=== PATIENT | female | born 1965 | race Caucasian/White ===

== ENCOUNTER 2016-11-18 09:55 | Emergency (ER) | payer BC ==
[2016-11-18 10:24] VITALS: BP 120/73
--- NOTE | 2016-11-18 11:32 | UC ---
Skin Complaint HPI - HPI Summary HPI Summary: This is an otherwise healthy 51 yo female who presented with facial swelling and erythema x 3d. She reports it started as a "pimple" that she tried to pop. She has been applying warm compresses, but the area of erythema and swelling continue to increase. No fever, chills, n/v. - History of Current Complaint Chief Complaint: UCSkin Stated Complaint: SWELLING IN FACE-BUG BITE Hx Last Menstrual Period: ablasion - Allergy/Home Medications Allergies/Adverse Reactions: Allergies Allergy/AdvReac Type Severity Reaction Status Date / Time Hydrocodone AdvReac Severe nausea/vomi Verified 11/18/16 10:24 tting Meperidine [From Demerol HCl] AdvReac Severe Nausea Verified 11/18/16 10:24 codeine AdvReac Severe vomitting Uncoded 11/18/16 10:24 Review of Systems Constitutional: Negative Skin: Other - erythema/swelling Eyes: Negative ENT: Negative Respiratory: Negative Cardiovascular: Negative Gastrointestinal: Negative Genitourinary: Negative Motor: Negative Neurovascular: Negative Musculoskeletal: Negative Neurological: Negative Psychological: Negative All Other Systems Reviewed And Are Negative: Yes PMH/Surg Hx/FS Hx/Imm Hx Previously Healthy: Yes - Surgical History Surgical History: Yes Surgery Procedure, Year, and Place: TUBAL LIGATION 1992. Uterine ablation, D& C. tonsillectomy - Family History Known Family History: Positive: None - Social History Alcohol Use: Occasionally Substance Use Type: None Smoking Status (MU): Never Smoked Tobacco Physical Exam Triage Information Reviewed: Yes Appearance: Well-Appearing Vital Signs: Initial Vital Signs Temp 97.8 F 11/18/16 10:20 Pulse 86 11/18/16 10:20 Resp 18 11/18/16 10:20 BP 120/73 11/18/16 10:20 Pulse Ox 100 11/18/16 10:20 Vital Signs Reviewed: Yes ENT: Positive: Normal ENT inspection Neck: Positive: Supple, Nontender, No Lymphadenopathy Respiratory: Positive: Chest non-tender, Lungs clear. Negative: Crackles, Rhonchi, Stridor, Wheezing Cardiovascular: Positive: RRR, No Murmur Skin: Positive: Other - erythema and induration with surrounding edema but without fluctuance to the R medial zygomatic arch just lateral to the labial fold. Course/Dx - Course Course Of Treatment: THis is an otherwise healthy 51 yo female who presents with 3 d h/o R facial swelling and erythema. Treat for cellulitis with Keflex x 7d. - Differential Diagnoses - Skin Complaint Differential Diagnoses: Abscess, Cellulitis, Foreign Body - Diagnoses Provider Diagnoses: 1. Cellulitis of the face Discharge - Discharge Plan Condition: Stable Disposition: HOME Prescriptions: Cephalexin CAP* [Keflex CAP*] 500 mg PO TID #21 cap Patient Education Materials: Cellulitis (ED) Additional Instructions: Instructions: 1. Please take antibiotics as directed 2. continue to regular warm compresses 3. Monitor for signs of increasing infection
== END 2016-11-18 11:33 | disposition home or self-care (01) ==
LOC: UCEAST 09:55
DX: L03.211 Cellulitis of face (principal); Z88.5 Allergy status to narcotic agent
CPT/HCPCS: 99212; G0463

== ENCOUNTER 2017-10-07 13:38 | Emergency (ER) | payer BC ==
[2017-10-07 14:47] VITALS: BP 133/93
--- NOTE | 2017-10-07 15:29 | UC ---
Yandel Yadav Elizabeth, scribed for Darrin Leavitt MD on 10/07/17 at 1505 . Skin Complaint HPI - HPI Summary HPI Summary: This patient is a 52 year old F presenting to [facility] with a chief complaint of lesion to her right calf since 1 week ago. The patient notes that the lesion is red, painful, hot to the touch, and feels hard. The patient is unsure of whether she was bitten by an insect at the site. The patient rates the pain 6/ 10 in severity. Symptoms aggravated by nothing. Symptoms alleviated by nothing. Patient denies pruritus, fever, or chills. Patient notes that she has been using bacitracin on it. She reports she has not squeezed it and there has been no drainage. - History of Current Complaint Chief Complaint: UCSkin Time Seen by Provider: 10/07/17 14:51 Stated Complaint: TICK BITE Hx Obtained From: Patient Hx Last Menstrual Period: ablasion Onset/Duration: Gradual Onset, Lasting Weeks - 1 week, Still Present Skin Exposure Onset/Duration: Weeks Ago - 1 week Timing: Constant Onset Severity: Mild Current Severity: Mild Pain Intensity: 6 Pain Scale Used: 0-10 Numeric Location: Other - right calf Aggravating Factor(s): Nothing Alleviating Factor(s): Nothing Associated Signs & Symptoms: Positive: Rash, Tenderness. Negative: Fever, Chills, Drainage - Allergy/Home Medications Allergies/Adverse Reactions: Allergies Allergy/AdvReac Type Severity Reaction Status Date / Time hydrocodone Allergy Nausea And Verified 10/07/17 14:48 Vomiting meperidine [From Demerol] Allergy Nausea Verified 10/07/17 14:48 codeine AdvReac Severe vomitting Uncoded 11/18/16 10:24 Review of Systems Constitutional: Negative - negative fever, negative chills Skin: Rash - erythema on right calf ENT: Negative - negative epistaxis Respiratory: Negative - negative cough All Other Systems Reviewed And Are Negative: Yes PMH/Surg Hx/FS Hx/Imm Hx Previously Healthy: Yes - Surgical History Surgical History: Yes Surgery Procedure, Year, and Place: TUBAL LIGATION 1992. Uterine ablation, D& C. tonsillectomy - Family History Known Family History: Positive: None - Social History Alcohol Use: Occasionally Substance Use Type: None Smoking Status (MU): Never Smoked Tobacco Physical Exam - Summary Physical Exam Summary: General: well-appearing, no pain distress Skin: warm, color reflects adequate perfusion, dry. Right lateral lower leg 3 cm diameter erythema, tender to palpation, 4mm scab in center, no drainage, no drainage on palpation Head: normal Eyes: EOMI, PONCHO ENT: normal Neck: supple, nontender Respiratory: CTA, breath sounds present Cardiovascular: RRR Abdomen: soft, nontender Bowel: present Musculoskeletal: normal, strength/ROM intact Neurological: sensory/motor intact, A&O x3 Psychological: affect/mood appropriate Triage Information Reviewed: Yes Vital Signs: Initial Vital Signs Temp 98.8 F 10/07/17 14:44 Pulse 89 10/07/17 14:44 Resp 12 10/07/17 14:44 BP 133/93 10/07/17 14:44 Pulse Ox 100 10/07/17 14:44 Vital Signs Reviewed: Yes Course/Dx - Course Course Of Treatment: NO DRAINABLE FLUID COLLECTION FOUND ON EXAM. F/U PMD; RECHECK SOONER IF WORSE. - Diagnoses Provider Diagnoses: RIGHT LEG INSECT BITE AND CELLULITIS Discharge - Sign-Out/Discharge Documenting (check all that apply): Discharge/Admit/Transfer - Discharge Plan Condition: Stable Disposition: HOME Discharge Disposition Comment: dischage home Prescriptions: DOXYcycline CAP(*) [DOXYcycline 100MG CAP(*)] 100 mg PO BID #28 cap Patient Education Materials: Cellulitis (ED), Insect Bite or Sting (ED) Referrals: Jesica Centeno MD [Primary Care Provider] - Additional Instructions: FOLLOW UP WITH YOUR DOCTOR. GET RECHECKED FOR ANY WORSENING OF YOUR CONDITION OR QUESTIONS OR CONCERNS. - Billing Disposition and Condition Condition: STABLE Disposition: Home The documentation as recorded by the Yandel macias Elizabeth accurately reflects the service I personally performed and the decisions made by me, Darrin Leavitt MD.
== END 2017-10-07 15:16 | disposition home or self-care (01) ==
LOC: UCEAST 13:38
DX: S80.861A Insect bite (nonvenomous), right lower leg, initial encounter (principal); L03.115 Cellulitis of right lower limb; Z88.5 Allergy status to narcotic agent; W57.XXXA Bitten or stung by nonvenomous insect and other nonvenomous arthropods, initial encounter; Y92.9 Unspecified place or not applicable
CPT/HCPCS: 99212; G0463